=== PATIENT | female | born 1960 | race Caucasian/White ===

== ENCOUNTER → 2023-10-24 07:32 | Outpatient (CLI) | payer OTHER, SELFPAY ==
--- NOTE | 2023-10-25 02:44 | DI.NM.S_ITS ---
DATE OF SERVICE: 10/24/2023 PROCEDURE PERFORMED: Exercise treadmill stress test without imaging. ORDERING PROVIDER: Ruth Monique MD INDICATIONS: The patient is a 63-year-old female, hyperlipidemic, diabetic DICTATION ENDS HERE Charu Perkins - MCKAYLA/albaro/ec doc#: [id number]/job#: [id number] dd: 10/24/2023 16:54:00 dt: 10/25/2023 02:34:00 DICTATING MD/COPIES TO: Duong Reese MD COPIES MNE: SIMA;
--- NOTE | 2023-10-25 02:48 | DI.NM.S_ITS ---
DATE OF SERVICE: 10/24/2023 PROCEDURE PERFORMED: Exercise treadmill stress test without imaging. ORDERING PROVIDER: Ruth Monique MD INDICATIONS: The patient is a 63-year-old hyperlipidemic, diabetic female with atypical chest discomfort. FINDINGS: 1. The patient was able to exercise for 8 minutes 37 seconds on a standard Peter protocol suggesting very good exercise capacity with an GERMAIN of -34%, achieving 10.1 METs. 2. She had a normal heart rate and blood pressure response to exercise, achieving a maximum heart rate of 149 bpm (96% of her predicted maximum). 3. She had no chest discomfort or other anginal symptoms. 4. Her resting ECG shows sinus rhythm with normal ST segments. There are no significant ST-segment deviations or arrhythmias with stress, but rare PVCs in recovery, rarely in couplets. IMPRESSION: 1. Normal exercise treadmill stress test for ischemia. 2. Excellent exercise capacity without angina or arrhythmias except for rare PVCs in recovery, rarely in couplets. Charu Perkins - MCKAYLA/albaro/susan doc#: [id number]/job#: [id number] dd: 10/24/2023 16:57:00 dt: 10/25/2023 02:42:00 DICTATING MD/COPIES TO: Duong Reese MD; Ruth Monique MD COPIES MNE: SIMA;
== END ==
PROVIDERS: Referring Provider Internal Medicine Cardiovascular Disease; Visit Provider Internal Medicine Cardiovascular Disease
DX: R07.89 Other chest pain (principal); E11.9 Type 2 diabetes mellitus without complications; E78.5 Hyperlipidemia, unspecified
CPT/HCPCS: 93017

== ENCOUNTER → 2023-11-18 06:14 | Outpatient (CLI) | payer OTHER, SELFPAY ==
--- NOTE | 2023-11-18 06:19 | DI.ECHO.S_ITS ---
[facility] : : [address] : : [place] : : [id number] : : Phone: [phone] Echocardiogram Report + + :Name: MARTIN SINGH Study Date: 11/18/2023 Height: 65 in : :Hospital ReadingLocation: Weight: 174 lb : : Gender: Female BSA: 1.9 m2 : :: 1960 Age: 63 yrs BP: 128/75 mmHg: :Reason For Study: MURMUR : :Ordering Physician: CARMITA, : :[place] Performed By: Diann Estrada : :Referring: [place] MONIQUE : + + Interpretation Summary 1) Normal left ventricular thickness, size, wall motion, and systolic function (EF 55-60%). 2) Normal right ventricular size and function. 3) The aortic valve is slightly calcified. There is no aortic valve stenosis. There is mild aortic regurgitation 4) No prior Echo available for comparison. Procedure: A two-dimensional transthoracic echocardiogram with color flow and Doppler was performed. The study quality was technically adequate. There is no prior echocardiogram noted for this patient. The patient was in sinus rhythm with heart rates between 63-73 bpm during the exam. Left Ventricle: The left ventricle is normal in size and wall thickness. The ejection fraction is estimated to be 55-60%. Left ventricular systolic function appears normal without focal wall motion abnormalities. Diastolic parameters suggest probable normal left ventricular diastolic function and normal filling pressures. Right Ventricle: The right ventricle is normal in size and function. Atria: The left atrial size is normal. Right atrial size is normal. There is no Doppler evidence for an interatrial shunt. Mitral Valve: The mitral valve is normal in structure and function. There is trace mitral regurgitation. Aortic Valve: The aortic valve is trileaflet. The aortic valve opens well. The aortic valve is slightly calcified. There is no aortic valve stenosis. There is mild aortic regurgitation. Tricuspid Valve: The tricuspid valve is normal in structure and function. There is mild tricuspid regurgitation. The right ventricular systolic pressure is estimated to be at least 29 mmHg based on an estimated right atrial pressure of 8 mm Hg. Pulmonic Valve: The pulmonic valve leaflets are thin and pliable; valve motion is normal. There is trace pulmonic regurgitation. Great Vessels: The aortic root is normal size. The dimensions of the ascending aorta are normal. The IVC is dilated (diameter is greater than 2.1 cm) yet it collapses greater than 50% with a sniff. This suggests a right atrial pressure of 8 mm Hg. Pericardium/ Pleura There is no pericardial effusion. There is no pleural effusion. MMode/2D Measurements & Calculations LVIDd: 4.9 cm LVOT diam: 2.0 cm LVIDs: 3.0 cm Ao root diam: 2.9 cm FS: 37.4 % asc Aorta Diam: 3.4 cm IVSd: 0.77 cm Ao Arch Diam (Prox Trans): 2.7 cm LVPWd: 0.76 cm LV ortiz. diameter/BSA (cm/m^2): 2.6 LV sys. diameter/BSA (cm/m^2): 1.6 LA A2 area: 15.8 cm2 RA long axis: 4.9 cm LA A4 area: 18.5 cm2 RA area: 12.6 cm2 LA length (vol): 4.9 cm RA vol: 27.3 ml LA vol: 50.9 ml RA : 14.7 ml/m2 LA vol index: 27.3 ml/m2 IVC diam: 2.1 cm RVD1 (basal): 3.4 cm RVD2 (mid): 3.0 cm TAPSE: 1.7 cm Doppler Measurements & Calculations Ao V2 max: 210.6 cm/sec LVOT Max Lul: 124.0 cm/sec Ao V2 mean: 149.6 cm/sec LV V1 max P.1 mmHg Ao max P.8 mmHg LV V1 VTI: 27.9 cm Ao mean P.9 mmHg ALCIDES(I,D): 1.9 cm2 Ao V2 VTI: 47.6 cm ALCIDES(V,D): 1.9 cm2 sev ratio: 0.59 ALCIDES indexed to BSA (cm^2/m^2): 1.00 AI P1/2t: 608.0 msec AI dec slope: 177.9 cm/sec2 MV E max lul: 76.4 cm/sec TR max lul: 229.0 cm/sec MV A max lul: 74.8 cm/sec TR max P.0 mmHg MV E/A: 1.0 PA V2 max: 87.5 cm/sec Med Peak E' Lul: 7.1 cm/sec PA V2 mean: 66.5 cm/sec E/E' med: 10.8 PA mean P.9 mmHg Lat Peak E' Lul: 10.0 cm/sec PA pr(Accel): 51.6 mmHg E/E' lat: 7.7 E/e' average: 9.2 MV dec time: 0.19 sec SV(LVOT): 88.4 ml Reading Physician:12:53 PM
== END ==
LOC: ECHO 06:18
PROVIDERS: Referring Provider Internal Medicine Cardiovascular Disease; Visit Provider Internal Medicine Cardiovascular Disease
DX: I08.2 Rheumatic disorders of both aortic and tricuspid valves (principal); R01.1 Cardiac murmur, unspecified
CPT/HCPCS: 93306